=== PATIENT | female | born 1955 | race Caucasian/White ===

== ENCOUNTER 2018-11-01 20:28 | Emergency (ER) | payer BC ==
[2018-11-01 20:35] VITALS: RESP 18
[2018-11-01] MEDS ORDERED: SODIUM CHLORIDE 0.9% 500 ML 500 ML IV STA (20:42)
[2018-11-01] MEDS ORDERED: ONDANSETRON 4 MG/2 ML VIAL IVP STA (20:42)
[2018-11-01 20:55] LABS: Basophils % (A) 0 %; Eosinophils # (A) 0.1 k/uL (0-0.7); Eosinophils % (A) 1 %; HCT 43.7 % (34.0-46.0); HGB 14.8 gm/dL (11.4-16.0); Lymphocytes # (A) 0.9 k/uL (1.0-4.8); Lymphocytes % (A) 8 %; MCH 30.7 pg (25.0-35.0); MCHC 33.9 g/dL (31.0-37.0); MCV 90.6 fL (80.0-100.0); Mean Platelet Volume 8.4; Monocytes # (A) 0.2 k/uL (0-1.0); Monocytes % (A) 2 %; Neutrophils # (A) 9.5 k/uL (1.3-7.7); Neutrophils % (A) 89 %; Platelet Count 160 k/uL (150-450); RBC 4.83 m/uL (3.80-5.40); RDW 12.3 % (11.5-15.5); WBC 10.7 k/uL (3.8-10.6)
[2018-11-01 21:04] LABS: ALT 31 U/L (9-52); AST 25 U/L (14-36); Albumin 4.3 g/dL (3.5-5.0); Alkaline Phosphatase 114 U/L (38-126); Anion Gap 14 mmol/L; Blood Urea Nitrogen 14 mg/dL (7-17); Calcium 9.3 mg/dL (8.4-10.2); Carbon Dioxide 22 mmol/L (22-30); Chloride 102 mmol/L (98-107); Glucose 440 mg/dL (74-99); Lipase 140 U/L (23-300); Sodium 138 mmol/L (137-145); Total Protein 7.3 g/dL (6.3-8.2)
[2018-11-01 21:06] LABS: Glucose,Whole Blood 406 mg/dL (75-99)
[2018-11-01] MEDS ORDERED: SODIUM CHLORIDE 0.9% 1,000 ML IV STA (21:14)
--- NOTE | 2018-11-01 21:17 | ED ---
General Adult HPI - General Chief complaint: Nausea/Vomiting/Diarrhea Stated complaint: Hyperglycemia Time Seen by Provider: 11/01/18 20:32 Source: patient, EMS Mode of arrival: EMS Limitations: no limitations - Related Data Home Medications Medication Instructions Recorded Confirmed Diazepam [Valium] 2.5 - 5 mg PO DAILY PRN 11/01/18 11/01/18 Previous Rx's Medication Instructions Recorded Lidocaine Viscous 2% [Xylocaine 15 ml MUCOUS MEM DAILY PRN #5 cup 11/02/18 Viscous] Polyethylene Glycol 3350 [Miralax] 17 gm PO DAILY #3 packet 11/02/18 Allergies Allergy/AdvReac Type Severity Reaction Status Date / Time codeine Allergy Unknown Verified 11/01/18 21:31 Review of Systems ROS Statement: Those systems with pertinent positive or pertinent negative responses have been documented in the HPI. ROS Other: All systems not noted in ROS Statement are negative. Past Medical History Past Medical History: Diabetes Mellitus, Hyperlipidemia, Hypertension, Thyroid Disorder History of Any Multi-Drug Resistant Organisms: None Reported Past Surgical History: Appendectomy, Section Past Psychological History: No Psychological Hx Reported Smoking Status: Former smoker Past Alcohol Use History: Rare Past Drug Use History: None Reported General Exam Limitations: no limitations Course Vital Signs 11/01/18 11/01/18 11/01/18 20:30 22:35 22:50 Temperature 98.7 F 99.2 F Pulse Rate 104 H 133 H 118 H Respiratory 18 18 Rate Blood Pressure 177/78 137/83 O2 Sat by Pulse 98 97 Oximetry Medical Decision Making - Medical Decision Making Dictation was produced using [employer] dictation software. please excuse any grammatical, word or spelling errors. Chief Complaint: 63-year-old female with multiple comorbidities noncompliant with medications presents with rectal pain, abdominal pain nausea and vomiting. History of Present Illness: It is a 63-year-old female. She has past medical history of constipation. Last time she had a bowel movement was 2 days ago. Patient is a diabetic and has other comorbidities. She stopped her medications herself 2 years ago because she feels like to avoid working and didn't make her feel any better. Patient's here today because her symptoms have acutely worsened. She called EMS and was transferred here. Patient states that she's been having bilious emesis that worse today than yesterday. Denies any constitutional symptoms. The ROS documented in this emergency department record has been reviewed and confirmed by me. Those systems with pertinent positive or negative responses have been documented in the HPI. All other systems are other negative and/or noncontributory. PHYSICAL EXAM: General Impression: Alert and oriented x3, anxious HEENT: Normocephalic atraumatic, extra-ocular movements intact, pupils equal and reactive to light bilaterally, mucous membranes moist. Cardiovascular: Heart regular rate and rhythm, S1&S2 audible, no murmurs, rubs or gallops Chest: Lungs clear to auscultation bilaterally, no rhonchi, no wheeze, no rales Abdomen: Bowel sounds present, abdomen soft, non-tender, non-distended, no organomegaly Musculoskeletal: Pulses present and equal in all extremities, no peripheral edema Motor: Power 5/5 bilaterally, no focal deficits noted Neurological: CN II-XII grossly intact, no focal motor or sensory deficits noted Skin: Intact with no visualized rashes ED course: 63-year-old female with chief complaint of rectal pain, nausea vomiting signs upon arrival shows heart rate of 104, worse vital signs within acceptable limits.Laboratory evaluation obtained. CBC unremarkable. Metabolic panel shows glucose of 440. Urinalysis positive for glucose. There is a mild anion gap but no acidosis. KUB and x-ray shows no acute processes. Patient was trialed with enema with no result. Male rectal disimpaction was performed and retrieval of some stool however patient wasn't able to tolerate more. Repeat enema was performed. Given that patient not having significant nausea vomiting. She is given the option to try laxatives at home. Patient was given 1 round of MiraLAX prior to discharge. Patient given topical lidocaine for concern of anal fissure to aide with stool passage. Patient given referral to Dr. Alejandre and construction person. Patient is comfortable with this plan. She is told to return to the emergency Department with fever, worsening abdominal pain, nausea vomiting. EKG interpretation: Ventricular rate 109, sinus tachycardia, CT interval 154, Q 60, QTc 439. No CT prolongation, no QTC prolongation, no ST or T-wave changes noted. s. Overall, this EKG is unremarkable - Lab Data Result diagrams: 11/01/18 20:42 11/01/18 20:42 Lab Results 01/29/19 01/29/19 01/29/19 Range/Units 20:34 20:42 20:42 WBC 10.7 H (3.8-10.6) k/uL RBC 4.83 (3.80-5.40) m/uL Hgb 14.8 (11.4-16.0) gm/dL Hct 43.7 (34.0-46.0) % MCV 90.6 (80.0-100.0) fL MCH 30.7 (25.0-35.0) pg MCHC 33.9 (31.0-37.0) g/dL RDW 12.3 (11.5-15.5) % Plt Count 160 (150-450) k/uL Neutrophils % 89 % Lymphocytes % 8 % Monocytes % 2 % Eosinophils % 1 % Basophils % 0 % Neutrophils # 9.5 H (1.3-7.7) k/uL Lymphocytes # 0.9 L (1.0-4.8) k/uL Monocytes # 0.2 (0-1.0) k/uL Eosinophils # 0.1 (0-0.7) k/uL Basophils # 0.0 (0-0.2) k/uL Sodium 138 (137-145) mmol/L Potassium 5.0 (3.5-5.1) mmol/L Chloride 102 (98-107) mmol/L Carbon Dioxide 22 (22-30) mmol/L Anion Gap 14 mmol/L BUN 14 (7-17) mg/dL Creatinine 0.47 L (0.52-1.04) mg/dL Est GFR (CKD-EPI)AfAm >90 (>60 ml/min/1.73 sqM) Est GFR (CKD-EPI)NonAf >90 (>60 ml/min/1.73 sqM) Glucose 440 H (74-99) mg/dL POC Glucose (mg/dL) 406 H (75-99) mg/dL POC Glu Dry Goods Clerk ID Ct [place] Calcium 9.3 (8.4-10.2) mg/dL Total Bilirubin 1.0 (0.2-1.3) mg/dL AST 25 (14-36) U/L ALT 31 (9-52) U/L Alkaline Phosphatase 114 (38-126) U/L Total Protein 7.3 (6.3-8.2) g/dL Albumin 4.3 (3.5-5.0) g/dL Lipase 140 (23-300) U/L Urine Color Urine Appearance (Clear) Urine pH (5.0-8.0) Ur Specific [facility] (1.001-1.035) Urine Protein (Negative) Urine Glucose (UA) (Negative) Urine Ketones (Negative) Urine Blood (Negative) Urine Nitrite (Negative) Urine Bilirubin (Negative) Urine Urobilinogen (<2.0) mg/dL Ur Leukocyte Esterase (Negative) 11/01/18 Range/Units 20:48 WBC (3.8-10.6) k/uL RBC (3.80-5.40) m/uL Hgb (11.4-16.0) gm/dL Hct (34.0-46.0) % MCV (80.0-100.0) fL MCH (25.0-35.0) pg MCHC (31.0-37.0) g/dL RDW (11.5-15.5) % Plt Count (150-450) k/uL Neutrophils % % Lymphocytes % % Monocytes % % Eosinophils % % Basophils % % Neutrophils # (1.3-7.7) k/uL Lymphocytes # (1.0-4.8) k/uL Monocytes # (0-1.0) k/uL Eosinophils # (0-0.7) k/uL Basophils # (0-0.2) k/uL Sodium (137-145) mmol/L Potassium (3.5-5.1) mmol/L Chloride (98-107) mmol/L Carbon Dioxide (22-30) mmol/L Anion Gap mmol/L BUN (7-17) mg/dL Creatinine (0.52-1.04) mg/dL Est GFR (CKD-EPI)AfAm (>60 ml/min/1.73 sqM) Est GFR (CKD-EPI)NonAf (>60 ml/min/1.73 sqM) Glucose (74-99) mg/dL POC Glucose (mg/dL) (75-99) mg/dL POC Glu [employer] Clerk ID Calcium (8.4-10.2) mg/dL Total Bilirubin (0.2-1.3) mg/dL AST (14-36) U/L ALT (9-52) U/L Alkaline Phosphatase (38-126) U/L Total Protein (6.3-8.2) g/dL Albumin (3.5-5.0) g/dL Lipase (23-300) U/L Urine Color Light Yellow Urine Appearance Clear (Clear) Urine pH 6.0 (5.0-8.0) Ur Specific [facility] 1.029 (1.001-1.035) Urine Protein Trace H (Negative) Urine Glucose (UA) 4+ H (Negative) Urine Ketones 2+ H (Negative) Urine Blood Negative (Negative) Urine Nitrite Negative (Negative) Urine Bilirubin Negative (Negative) Urine Urobilinogen <2.0 (<2.0) mg/dL Ur Leukocyte Esterase Negative (Negative) Disposition Clinical Impression: Constipation Disposition: HOME SELF-CARE Condition: Good Instructions (If sedation given, give patient instructions): Constipation (DC) Prescriptions: Lidocaine Viscous 2% [Xylocaine Viscous] 15 ml MUCOUS MEM DAILY PRN #5 cup PRN Reason: rectal pain Polyethylene Glycol 3350 [Miralax] 17 gm PO DAILY #3 packet Is patient prescribed a controlled substance at d/c from ED?: No Referrals: Gucci Alejandre DO [STAFF PHYSICIAN] - 1-2 days Amanda Roche MD [STAFF PHYSICIAN] - 1-2 days Time of Disposition: 00:22
[2018-11-01 21:21] LABS: Appearance,Urine Clear (Clear); Bilirubin,Urine Negative (Negative); Blood,Urine Negative (Negative); Color,Urine Light Yellow; Glucose,Urine (UA) 4+ (Negative); Leukocyte Esterase,Urine Negative (Negative); Nitrite,Urine Negative (Negative); Protein,Urine Trace (Negative); Specific Gravity,Urine 1.029 (1.001-1.035); Urobilinogen,Urine <2.0 mg/dL (<2.0)
--- NOTE | 2018-11-01 21:55 | XR ---
EXAMINATION TYPE: XR chest 1V DATE OF EXAM: 11/01/2018 COMPARISON: NONE HISTORY: Chest pain TECHNIQUE: Single frontal view of the chest is obtained. FINDINGS: Heart and mediastinum are normal. Lungs are clear. Diaphragm is normal. There are chest le ads. Bony thorax is intact. IMPRESSION: Normal chest
--- NOTE | 2018-11-01 21:56 | XR ---
EXAMINATION TYPE: XR KUB DATE OF EXAM: 11/01/2018 COMPARISON: NONE HISTORY: Pain TECHNIQUE: 2 views supine FINDINGS: There is no sign of intestinal obstruction or pneumoperitoneum. Fecal pattern is normal. Aminah ng bases are clear. There are no pathologic calcifications over the kidneys. There are is in th e pelvis on the left side. There is no evidence of a mass. IMPRESSION: Nonacute abdomen.
[2018-11-01] MEDS ORDERED: INSULIN REGULAR 100 UNIT/ML VIAL IV ONE (22:22)
[2018-11-01 22:37] LABS: Ketones,Urine 2+ (Negative)
[2018-11-01 22:38] VITALS: TEMP 99.2
[2018-11-01] MEDS ORDERED: LIDOCAINE VISCOUS 2% 15 ML CUP MUCOUS MEM ONE (23:08)
[2018-11-02] MEDS ORDERED: POLYETHYLENE GLYCOL 3350 17 GM POWD.PACK PO STA (00:16)
[2018-11-02 00:27] VITALS: BP 122/70; PULSE 114
== END 2018-11-02 00:49 | disposition home or self-care (01) ==
LOC: EC 20:28
DX: K59.00 Constipation, unspecified (principal); R00.0 Tachycardia, unspecified; E11.9 Type 2 diabetes mellitus without complications; Z91.14 Patient's other noncompliance with medication regimen; Z87.891 Personal history of nicotine dependence; Z88.5 Allergy status to narcotic agent
CPT/HCPCS: 36415; 93005; 80053; 83690; 85025; 81003; 71045; 74018; 99285; 96374; 96361; J2405

== ENCOUNTER → 2018-12-28 | Outpatient (CLI) | payer BC ==
--- NOTE | 2018-12-30 14:59 | MM ---
Reason for exam: screening (asymptomatic). Last mammogram was performed 2 years and 6 months ago. History: Patient is postmenopausal. Physical Findings: A clinical breast exam by your physician is recommended on an annual basis and results should be correlated with mammographic findings. MG 3D Screening Mammo W/Cad Bilateral CC and MLO view(s) were taken. Prior study comparison: July 13, 2016, bilateral mammogram, performed at [facility]. April 09, 2013, bilateral mammogram, performed at [facility]. The breast tissue is heterogeneously dense. This may lower the sensitivity of mammography. There are benign appearing round linear vascular calcifications bilaterally. There is chronic nodularity in the left breast. There is no discrete abnormality. ASSESSMENT: Benign, BI-RAD 2 RECOMMENDATION: Routine screening mammogram of both breasts in 1 year.
== END | disposition home or self-care (01) ==
LOC: RADMAMWWP 07:06
PROVIDERS: ATTEND Family Medicine
DX: Z12.31 Encounter for screening mammogram for malignant neoplasm of breast (principal)
CPT/HCPCS: 77063; 77067

== ENCOUNTER → 2024-12-01 | Outpatient (CLI) | payer MEDICARE ==
--- NOTE | 2024-12-01 17:43 | XR ---
EXAMINATION TYPE: XR forearm LT, XR elbow limited LT DATE OF EXAM: 12/01/2024 5:14 PM INDICATION: Patient age:Female; 69 years old; Reason for study: M79.602 PAIN IN LEFT ARM; PHH. pain COMPARISON: None TECHNIQUE: The left forearm was examined in AP and lateral projections. The left elbow was examined i n lateral projections. FINDINGS: No acute osseous pathology, soft tissue swelling or joint dislocations are seen. No radiop aque foreign body. IMPRESSION: No evidence of acute fracture. [facility], , 12/01/2024 5:41 PM
== END | disposition home or self-care (01) ==
LOC: RADXRMAIN 16:34
PROVIDERS: ATTEND Family Medicine
DX: M79.602 Pain in left arm (principal)